=== PATIENT | female | born 1955 | race Caucasian/White ===

== ENCOUNTER 2020-08-16 08:30 | Observation (INO) ==
--- NOTE | 2020-07-27 10:29 | PAT Medication Instructions ---
Medication Instructions Date of Service July 27, 2020 Home Medications hydrochlorothiazide 12.5 mg capsule 12.5 mg PO QAM losartan 50 mg tablet 50 mg PO QAM acetaminophen 1,000 mg PO BID PRN multivitamin 1 tab PO 3XWK DO NOT take the morning of surgery hydrochlorothiazide 12.5 mg capsule 12.5 mg PO QAM losartan 50 mg tablet 50 mg PO QAM multivitamin 1 tab PO 3XWK Take morning of surgery With a small sip of water, OTHERWISE NOTHING TO EAT OR DRINK AFTER MIDNIGHT: acetaminophen 1,000 mg PO BID PRN (okay to take up to 4 hours prior to surgery if needed) Take evening before surgery acetaminophen 1,000 mg PO BID PRN (if needed) Other Notes If you have any questions please call us at [phone] or [phone] or [phone] or [phone]
--- NOTE | 2020-08-02 09:37 | PAT Medication Instructions ---
Medication Instructions Date of Service August 02, 2020 Home Medications Medication Instructions Recorded Wheeled Walker #1 ea 08/01/20 Wheeled Walker #1 ea 08/01/20 hydrochlorothiazide 12.5 mg capsule 12.5 mg PO QAM losartan 50 mg tablet 50 mg PO QAM acetaminophen 1,000 mg PO BID PRN multivitamin 1 tab PO 3XWK DO NOT take the morning of surgery hydrochlorothiazide 12.5 mg capsule 12.5 mg PO QAM losartan 50 mg tablet 50 mg PO QAM multivitamin 1 tab PO 3XWK Take morning of surgery With a small sip of water, OTHERWISE NOTHING TO EAT OR DRINK AFTER MIDNIGHT: acetaminophen 1,000 mg PO BID PRN (okay to take up to 4 hours prior to surgery if needed) Take evening before surgery acetaminophen 1,000 mg PO BID PRN (if needed) Other Notes If you have any questions please call us at [phone] or [phone] or [phone] or [phone]
--- NOTE | 2020-08-06 09:03 | Anesthesiology Consultation ---
Date of Service August 06, 2020 Assessment & Plan (1) Encounter for pre-operative examination: COVID Status: As of 08/06 assessment, patient denies travel to endemic area, known exposure/sick contacts, or symptoms of COVID19. Patient instructed that they and their household members must follow strict social distancing guidelines, wear a mask in public and avoid travel/events/gatherings for 14 days prior to surgery. Preoperative COVID19 testing to be completed prior to surgery per surgeon's arrangements (08/10). Patient made aware to self-isolate as much as possible between COVID testing and surgery. Chart Review Chart Review: Acceptable Risk for Surgery and Patient seen in Pre Admission Testing Teaching & Discussion Instructed NPO after midnight before surgery, except medications with 15 cc of water. Medication instructions provided according to the PAT guidelines. History Surgery Operation Date: 08/16/20 11:10 Proposed Procedures p Right Total Knee Arthroplasty - Lan Camara MD Height/Weight Height: 5 ft 6 in Weight: 98.2 kg Allergies Allergy/AdvReac Type Severity Reaction Status Date / Time lisinopril AdvReac Intermediate COUGH Verified 07/24/20 14:31 Medications Home Medications Medication Instructions Recorded Confirmed Last Taken hydrochlorothiazide 12.5 mg capsule 12.5 mg PO QAM 05/14/20 07/24/20 Unknown losartan 50 mg tablet 50 mg PO QAM 05/14/20 07/24/20 Unknown acetaminophen 1,000 mg PO BID PRN 07/24/20 07/24/20 Unknown multivitamin 1 tab PO 3XWK 07/24/20 07/24/20 Unknown Wheeled Walker #1 ea 08/01/20 Unknown Wheeled Walker #1 ea 08/01/20 Unknown Past Medical History Medical History HTN (hypertension) Hx of cancer of uterus hx. surgical intervention. no chemo/radiation Osteoarthritis Exercise / Class Metabolic Activity III < 4 Walking/Shop/Light housework (Does not do stairs/exertion due to knee pain, no SOB or CP with ambulation on one level) Past Family History Family History Other Heart disease Kidney disease Lung cancer No family history of adverse response to anesthesia Past Surgical History Surgical History History of arthroplasty of left knee History of carpal tunnel release bilateral History of colonoscopy Hx of cholecystectomy S/P laparoscopic hysterectomy BSO Past Anesthesia History No Hx of Anesthesia Complications and No Family Hx of Anesthesia Complications History of PONV No Hx of PONV and No Hx of Motion Sickness Social History Smoking Status: Never smoker Do You Dip or Chew Tobacco: No Hx Alcohol Use: Yes Alcohol type: beer, wine and hard liquor alcohol intake frequency: a few times a week Hx Substance Use: No substance use type: does not use Review of Systems Pt denies any recent chest pain, shortness of breath, palpitations, cough, fever, URI, or uncontrolled acid reflux. Physical Exam Vital Signs BP: 120/76 P: 77bpm SPO2: 97% RA T: 98.5 F R: 16 ENMT Mouth: + dental restorations (crown upper L side); no chipped teeth and no loose teeth Thyromental Distance: > or= 3.5 Finger Breadths Mallampati Class: I Neck + short neck; neck extension not limited Respiratory normal respiratory effort, lungs clear to auscultation Cardiovascular RRR, no murmur, no edema Testing Laboratory Results 08/06/20 09:07 08/06/20 09:07 PT 9.8 Seconds (9.0-12.0) 08/06/20 09:07 INR 1.0 (0.9-1.1) 08/06/20 09:07 APTT 24.8 Seconds (21.0-31.0) 08/06/20 09:07 Blood Type B Positive 08/06/20 09:07 Antibody Screen NEGATIVE 08/06/20 09:07 Electrocardiogram Date: 08/06/20 Findings: + NSR @ (67bpm) Compared to EKG from 05/30/10, QT has lengthened. Chest X-Ray Date: 08/06/20 Findings: + NAD
--- NOTE | 2020-08-06 09:47 | XRay Report ---
XR chest Pre-admission PA/Lat HISTORY: 64 years-old Female pat preoperative exam. No acute chest complaints. Chronic right knee pa in COMPARISON: 05/30/2010 TECHNIQUE: PA and lateral views of the chest FINDINGS: Cardiomediastinal and hilar silhouettes are within normal limits. No pneumothorax, pleural effusion, airspace consolidation or overt pulmonary edema. Surgical clips of the upper abdomen. The bones of th e chest appear grossly intact. IMPRESSION: No acute process. ACT 112: Negative or not required by law. The above report was generated using voice recognition software. It may contain grammatical, syntax o r spelling errors. Electronically signed by: Lonnie Scott M.D. 08/06/2020 9:45 AM
[2020-08-06 10:14] LABS: Basophils # (auto) 0.05 K/uL (0-0.2); Basophils % (auto) 0.8 %; Eosinophils # (auto) 0.11 K/uL (0-0.5); Eosinophils % (auto) 1.8 %; Hematocrit (blood only) 37.4 % (37-47); Hemoglobin 12.9 g/dL (12.0-16.0); Lymphocytes # (auto) 1.76 K/uL (1.2-3.4); Lymphocytes % (auto) 28.6 %; Mean Corpuscular Hemoglobin 31.2 pg (25-34); Mean Corpuscular Hgb Conc 34.5 g/dL (32-36); Mean Corpuscular Volume 90.6 fL (80-100); Mean Platelet Volume 9.6 fL (7.4-10.4); Monocytes # (auto) 0.32 K/uL (0.11-0.59); Monocytes % (auto) 5.2 %; Neutrophils # (auto) 3.92 K/uL (1.4-6.5); Neutrophils % (auto) 63.6 %; Platelet Count 404 K/uL (130-400); Red Blood Count 4.13 M/uL (4.2-5.4); White Blood Count 6.16 K/uL (4.8-10.8)
[2020-08-06 10:29] LABS: Partial Thromboplastin Ratio 0.9; Partial Thromboplastin Time 24.8 Seconds (21.0-31.0); Prothrombin Time 9.8 Seconds (9.0-12.0)
[2020-08-06 12:50] LABS: BUN Creatinine Ratio 25.6 (10-20); C Reactive Protein 1.61 mg/dl (0-0.29); Calcium 9.4 mg/dl (8.5-10.1); Creatinine Clr Calc Pharmacy 77.2 ml/min; Est GFR (African American) 81.6; Est GFR (Non-African American) 70.4; Potassium 3.8 mmol/L (3.5-5.1)
--- NOTE | 2020-08-07 05:43 | Electrocardiogram Report ---
Test Reason : Blood Pressure : / mmHG Vent. Rate : 067 BPM Atrial Rate : 067 BPM P-R Int : 164 ms QRS Dur : 088 ms QT Int : 402 ms P-R-T Axes : 051 -16 045 degrees QTc Int : 424 ms Normal sinus rhythm Normal ECG When compared with ECG of 30-MAY-2010 09:20, QT has lengthened Confirmed by Julián Benites ([id number]) on 08/07/2020 5:43:26 AM Referred By: Lan Camara Confirmed By:Julián Benites
--- NOTE | 2020-08-10 15:08 | History and Physical Report ---
DATE OF ADMISSION: 08/16/2020 CHIEF COMPLAINT: Right knee pain, discomfort and instability. HISTORY OF PRESENT ILLNESS: The patient is a 64-year-old female who presents for surgical treatment of her right knee. She has a history of a left knee replacement done by Dr. Milan about 10 years ago. She has done pretty well from this side. Over the past 5 years, she received a bit of increased pain and discomfort in her right knee. It has gradually gotten worse over time. She has a sense of instability in the knee and concern it is going to give out. She has a limited walking tolerance due to the pain. She takes medicines with minimal relief. She is not interested in any further injection, would just like to have her right knee fixed. She has got pain from her knee going up into her thigh and down into her foot. She has nighttime pain. PAST MEDICAL HISTORY: 1. Mild obesity with a BMI of 35. 2. Osteoarthritis. 3. History of uterine cancer, status post hysterectomy. PAST SURGICAL HISTORY: Include: 1. Cholecystectomy. 2. Left knee replacement done [address] Milan. 3. Hysterectomy. 4. Carpal tunnel surgery. ALLERGIES: LISINOPRIL. CURRENT MEDICATIONS: Include: 1. Losartan 50 mg a day. 2. Hydrochlorothiazide 12.5 mg a day. SOCIAL HISTORY: This is a 64-year-old female. Lives in [place]. She is . Does not smoke, 3-4 drinks per week. FAMILY HISTORY: Noncontributory. REVIEW OF HISTORY: Negative for diabetes, neurologic problem, vascular problems, bleeding disorders. Denies any chest pain or shortness of breath. No history of DVT or PE. No known bleeding problems. PHYSICAL EXAMINATION GENERAL: Shows a pleasant, middle-aged female. Looks to be in pretty good health. HEENT: Benign. NECK: Supple, no lymphadenopathy. LUNGS: Clear to auscultation. HEART: Regular rate and rhythm. ABDOMEN: Soft, nontender, nondistended. EXTREMITIES: Grossly neurovascularly intact except as follows. Examination of the right knee reveals the patient walks independently. She does limp on the right side. Knee goes into valgus with weightbearing. Motion is about 5-10 degrees short of full extension to 120 degrees of flexion. There is no instability. No pain with hip motion. X-RAYS: X-rays of the right knee reviewed. It shows advanced right knee DJD. She has got complete loss of her lateral joint space. She has got [id number] disease. A little bit of medial sided gapping. She has patellofemoral arthritis as well. ASSESSMENT: A 64-year-old female 10 years out from a left uncemented total knee replacement with advanced right knee degenerative joint disease. She has failed conservative measures and would just like to have her right knee fixed. PLAN: We will proceed with right knee replacement. The risks and benefits of this procedure were explained to the patient including but not limited to DVT, PE, , infection, neurological injury, vascular injury, bleeding problem, pain, limited range of motion, stiffness, failure to relieve her symptoms, incomplete relief of symptoms, and nerve palsy. The patient understands and desires to proceed. Informed consent was obtained. As far as discharge plans, she is planning to be discharged home using [facility] home health program.
[~2020-08-16 08:30] MED LIST: ACETAMINOPHEN 500 MG TAB PO SCH; BUPIVACAINE 0.5 % 5 MG/1 ML PF 10ML VIAL ONE; BUPIVACAINE LIPOSOME/PF 266 MG, BUPIVACAINE/EPINEPHRINE 50 ML, SODIUM CHLORIDE 0.9% 30 ... INFIL SCH; FAMOTIDINE 20 MG TAB PO SCH; GABAPENTIN 300 MG CAP PO SCH; LR 500ML BOLUS IV SCH; LR 60ML/HR IV SCH; METOCLOPRAMIDE HCL 10 MG TABLET PO SCH; Scopolamine 1 MG TDSY TD SCH; TRANEXAMIC ACID 1,000 MG **IV Intra-op IV SCH; ceFAZolin 2000MG 2,000 MG/15 ML SYR IV SCH
[2020-08-16] MEDS ORDERED: BUPIVACAINE LIPOSOME 1.3% 266 MG/20 ML VIAL ONE (09:28)
[2020-08-16] MEDS ORDERED: SODIUM CHLORIDE 0.9% PF 50 ML VIAL ONE (09:28)
[2020-08-16] MEDS ORDERED: EPINEPHrine INJ 1 MG/ML AMP ONE (09:29)
[2020-08-16] MEDS ORDERED: BUPIVACAINE 0.25% 30 ML VIAL ONE (09:29)
[2020-08-16] MEDS ORDERED: MIDAZOLAM HCL 1 MG/ML 2ML VIAL ONE (09:30)
[2020-08-16] MEDS ORDERED: fentaNYL citrate 100 MCG/2 ML VIAL ONE (09:30)
[2020-08-16] MEDS ORDERED: ONDANSETRON INJ 2 MG/ML 2 ML VIAL ONE (09:33)
[2020-08-16] MEDS ORDERED: PROPOFOL IV EMULSION 10 MG/ML 20 ML VIAL IV ONE ×2 (09:33→11:52)
[2020-08-16] MEDS ORDERED: ONDANSETRON INJ 2 MG/ML 2 ML VIAL IV PRN ×2 (10:02→14:10)
[2020-08-16] MEDS ORDERED: ePHEDrine sulfate 50 MG/ML AMP IV PRN (10:02)
[2020-08-16] MEDS ORDERED: ATROPINE SULFATE 0.1 MG/ML 10ML SYR IV PRN (10:02)
[2020-08-16] MEDS ORDERED: fentaNYL citrate 100 MCG/2 ML VIAL IV PRN (10:02)
--- NOTE | 2020-08-16 10:24 | History & Physical Bridge Note ---
Date of Service August 16, 2020 History & Physical Bridge Note I have examined the patient, reviewed the History & Physical and in the interval since the performance of the History & Physical I have noted the following changes of clinical significance: no changes noted
[2020-08-16] MEDS: BACITRACIN INJ 50,000 UNIT VIAL ONE ×2 (11:04→11:39)
[2020-08-16] MEDS ORDERED: LIDOCAINE HCL 2% 2 ML VIAL/AMP(20MG/ML) INFIL ONE (11:52)
--- NOTE | 2020-08-16 12:12 | Post Operative Brief Note ---
PG Immediate Post Op with CF Date of Surgery August 16, 2020 Pre & Post Diagnosis Operation Date: 08/16/20 10:40 Pre-Op Diagnosis: Right Knee Degenerative Joint Disease Post-Op Diagnosis: Right Knee Degenerative Joint Disease I identified the patient and participated in the time-out.: Yes Procedure Operation Date: 08/16/20 10:40 Actual Procedures p Right Total Knee Arthroplasty(Right) - Lan Camara MD Surgeon Lan Camara MD Piece Presser ISAAC Cuellar Estimated Blood Loss 50 Findings Consistent with Post-Op Diagnosis Fluids 1400 cc Specimens Specimen Description: Permanent A. Right knee bone and tissue Drains Ashford Catheter Anesthesia Type Spinal MAC Complications none Disposition Accompanied Patient To Recovery: No Disposition: Recovery Room
[2020-08-16] MEDS ORDERED: ePHEDrine sulfate 50 MG/ML SYR ONE (12:23)
--- NOTE | 2020-08-16 13:11 | XRay Report ---
TWO VIEWS RIGHT KNEE CLINICAL HISTORY: Postoperative examination. FINDINGS: AP and crosstable lateral portable views of the right knee are obtained. A right knee arthr oplasty is in near anatomic alignment. There has been undersurface remodeling of the patella. No acut e fracture is seen. There are expected postoperative changes around the knee including skin clips, so ft tissue edema, and subcutaneous gas. IMPRESSION: Expected postoperative changes status post right knee arthroplasty. No acute fracture is seen. ACT 112: Negative or not required by law. Electronically signed by: Dakoath Poon M.D. 08/16/2020 1:10 PM
--- NOTE | 2020-08-16 13:22 | Anesthesiology Progress Note ---
Date of Service August 16, 2020 Anesthesia Post Procedure Vital Signs Vital Signs: Temp Pulse Pulse Resp BP BP Pulse Ox 08/16/20 13:10 71 20 110/56 L 99 08/16/20 13:00 55 L 14 103/61 100 08/16/20 12:50 61 20 114/54 L 97 08/16/20 12:40 54 L 16 105/50 L 100 08/16/20 12:30 57 L 20 112/54 L 100 08/16/20 12:20 56 L 16 108/55 L 100 08/16/20 12:14 96.8 F L 59 L 12 103/53 L 100 08/16/20 08:52 97.9 F 58 L 18 147/77 H 100 Pain Intensity Right Knee: Pain Intensity: 0 Transfer of Care Handoff Completed per policy Notes Mental Status: alert / awake / arousable and participated in evaluation Patient Amnestic to Procedure: Yes Nausea / Vomiting: adequately controlled Pain: adequately controlled Airway Patency, RR, SpO2: stable & adequate BP & HR: stable & adequate Hydration State: stable & adequate Neuraxial Anesthesia: was administered and sensory block is resolving Anesthetic Complications: no major complications apparent and Pt Satisfied with anesthetic care
[2020-08-16] MEDS ORDERED: HYDROmorphone INJ 0.5 MG/0.5 ML SYR IV PRN (14:10)
[2020-08-16] MEDS ORDERED: MULTIVITAMIN TAB PO SCH (14:10)
[2020-08-16] MEDS ORDERED: diphenhydrAMINE Capsule 25 MG CAP PO PRN (14:10)
[2020-08-16] MEDS ORDERED: ALUMINUM/MAGNESIUM SUSP 30 ML UDC PO PRN (14:10)
[2020-08-16] MEDS ORDERED: NALOXONE HCL 0.4 MG/1 ML VIAL/CARP IV PRN (14:10)
[2020-08-16] MEDS ORDERED: bisacodyL 10 MG SUPP PR PRN (14:10)
[2020-08-16] MEDS ORDERED: METOCLOPRAMIDE HCL INJ 5 MG/ML 2 ML VIAL IV PRN (14:10)
[2020-08-16] MEDS ORDERED: MAGNESIUM HYDROXIDE SUSP 30 ML UDC PO PRN (14:10)
[2020-08-16] MEDS: SODIUM CHLORIDE 0.9% 1000ML 1,000 ML IV SCH (14:34)
--- NOTE | 2020-08-16 15:09 | Progress Notes ---
DATE: 08/16/2020 SUBJECTIVE: A 64-year-old female postop from a right knee replacement. She is doing well. Not having any pain yet, though she has not got the sensation back in her legs. No chest pain or shortness of breath. Not feeling dizzy or lightheaded. OBJECTIVE: VITAL SIGNS: Temperature 36.4. Vital signs are stable. GENERAL: Shows a pleasant, middle-aged female. She is sitting up in bed, looks pretty comfortable. LUNGS: Clear to auscultation. HEART: Regular rate and rhythm. ABDOMEN: Soft, nontender, nondistended. EXTREMITIES: Grossly neurovascularly intact except as follows: Examination of the right leg reveals the dressing to be clean, dry and intact. Toes are pink with brisk refill. She does not have any significant sensory or motor function in the leg yet. X-RAYS: X-rays of the right knee from recovery room are reviewed. It shows a right cemented posterior stabilized total knee arthroplasty. Components looked to be in good position. No signs of problems. ASSESSMENT: A 64-year-old female postoperative from right knee replacement, doing pretty well. Leg is well aligned. The spinal is still in effect. PLAN: 1. DVT prophylaxis including thigh-high TEDs, SCDs, and aspirin twice a day. 2. PT/OT. Weight bear as tolerated. Right total knee protocol. 3. Pain control, doing well with current pain regimen. We will obviously have to adjust her meds as the spinal wears off. 4. IV antibiotics x24 hours. 5. Disposition: Plan to discharge to home with some home health once adequately recovered and medically stable.
[2020-08-16] MEDS: ACETAMINOPHEN 500 MG TAB PO SCH (17:09)
[2020-08-16] MEDS: Scopolamine CHECK PATCH PLACEMENT SCH ×2 (17:10→23:20)
--- NOTE | 2020-08-16 17:12 | Operative Report ---
Post Operative Report Pre & Post Diagnosis Operation Date: 08/16/20 10:40 Pre-Op Diagnosis: Right Knee Degenerative Joint Disease Post-Op Diagnosis: Right Knee Degenerative Joint Disease I identified the patient and participated in the time-out.: Yes Procedure Operation Date: 08/16/20 10:40 Actual Procedures p Right Total Knee Arthroplasty(Right) - Lan Camara MD Surgeon Lan Camara MD Connie Cleaner ISAAC Cuellar Estimated Blood Loss 50 Findings Consistent with Post-Op Diagnosis Operative findings revealed advanced right knee DJD. She had extensive grade 4 [id number] disease and eburnation of the lateral and patellofemoral compartments. She had a fixed valgus deformity to her knee. Moderate-sized joint effusion. Fluids 1400 cc Specimens Right knee sent for pathology. Drains None. Complications none Disposition Accompanied Patient To Recovery: No Disposition: Recovery Room Indications Patient is a 64-year-old female has had a long history of bilateral knee problems consistent with arthritis. She underwent a left knee replacement in the past. She developed progressive deformity and pain and discomfort in her right knee. She failed all conservative measures. She elected to a total knee arthroplasty. Description of Procedure Operative implants consisted of: 1. Biomet Vanguard size 62.5 right posterior stabilized femoral component. 2. Biomet size 63 tibial tray. 3. 12 mm posterior stabilized polyethylene insert. 4. 28 x 8 all polypatella. The patient was taken to the operating room, identified, placed on the operating table supine position but all contact areas were properly padded. IV antibiotics tried by anesthesia team. A spinal anesthetic and abductor canal block had been provided in the holding area. A Ashford catheter was placed in sterile fashion. A right thigh turn was then placed. The right lower extr emities and prepped draped in usual sterile fashion. The right leg was elevated exsanguinated with use of an Esmarch interspace at 300 mmHg. An anterior approach to the right knee was then performed through longitudinal incision centered over the patella. Sharp dissection was got through subcutaneous tissue down to the extensor mechanism. A medial parapatellar arthrotomy incision was made. Some subperiosteal dissection was carried out medially. The fat pad was resected from each patella tendon. The lateral patellofemoral ligament was released. Patella was subluxated laterally and the knee was flexed. The osteophytes were taken off the distal femur. The ACL and PCL were then released from the distal femur the tibia subluxated anteriorly. The external tibial alignment jig was then placed in the interface the tibia and adjusted 12 mm medially. Proximal tibial cut was made remove about 3 mm metal from the medial side. The tibia was then sized to a size 63. We did have to downsize a slightly oriented get the proper rotation. Attention drawn the femur. The distal femur turned with a sharp drill bit intramedullary canal was suction. A right 5 degree valgus cutting guide was placed. This femoral cutting block was pinned in place but distal femoral cut was made to take an additional 3 mm of bone off distal femur. The knee was brought out in extension. I did release some the IT band and posterior lateral capsule in order to equalize extension gap. Great care was taken throughout the procedure protect the peroneal nerve at all times. The knee was then flexed. The femur was then sized to a size 62.5. The AP cutting block was pinned parallel to the epicondylar axis which was 4 degrees of external rotation. The anterior cut, anterior chamfer, posterior cut, posterior chamfer cuts were made. Box cutting guide was placed in just slight lateral box cut was made. The knee was flexed. The remnants of the medial and lateral menisci were excised. The osteophytes were taken off the posterior aspect of femur. I did have to release the popliteus in order to equalize the flexion gap. The knee was then trialed. The trial femoral component was placed. The tibial tray was pinned in maximum external rotation and the drill and stem punch were used to create defect in proximal tibia for the tibial tray. I then trialed the knee and the 12 mm insert fit most appropriately. Attention drawn the patella. The patella was cleaned of all soft tissues. Patella thickness measured 19 mm in thickness was cut down to 13. Was sized to a size 28 patella. The lug holes were drilled for the 28 patella. The lateral osteophyte was removed. Patella button was placed. Knee was taken through range of motion and the patella tracked nicely with no thumbs test. Attention drawn to placing permanent components. Nupathe all trial components were removed. Bone plug was placed in the distal femur limit blood loss. Double batch Palacos G cement was mixed. A Biomet Vanguard size 62.5 right posterior stabilized femoral component, a Biomet size 63 tibial tray, a size 12 mm posterior stabilized polyethylene insert, and a 28 x 8 all polypatella were then cemented in place. The knee was brought out in full extension total cement hardened. Final cement check was then performed. Pericapsular tissues were injected with a total of 100 cc of combination of 20 of Exparel, 30 cc normal saline, 50 cc of quarter percent Marcaine with epinephrine. Patient did receive 1 g tranexamic acid. The tech was then let down for final turn time of 51 minutes. Hemostasis assured use electrocautery. Extensor mechanism closed with combination 1 PDS suture #1 Vicryl suture in a [id number] fashion. Extensor mechanism checked and found to be intact the subcutaneous tissue then closed with 2 Dexon suture in a buried interrupted fashion skin was closed skin juan carlos. Leg was then cleaned dried a sterile dressing both Xeroform, 4 x 4's, sterile cast padding, Carlton bandage applied. Patient then transferred to the recovery in stable condition. The patient tolerated procedure well and there were no complications. Maynor Cuellar, my physician assisted living assistant, was present for the entire procedure. His assistance was essential and required for appropriate patient positioning, prepping and draping, surgical exposure, performing the technical details of the operation, placement the implants, closure of the wound, and placement of the sterile bandage. I attest to the content of the Intraoperative Record and any orders documented therein. Any exceptions are noted below.
[2020-08-16] MEDS: KETOROLAC 30 MG/ML VIAL IV SCH ×2 (17:14→23:20)
[2020-08-16] MEDS: ASCORBIC ACID 500 MG TAB PO SCH (17:18)
[2020-08-16] MEDS: FERROUS GLUCONATE 324 MG TAB PO SCH (17:18)
[2020-08-16] MEDS: ceFAZolin 2000MG 2,000 MG/15 ML SYR IV SCH (17:39)
[2020-08-16] MEDS ORDERED: TRANEXAMIC ACID / 0.7% NACL 1,000 MG/100 ML BAG IV SCH (19:00)
[2020-08-16] MEDS: oxyCODONE HCL IR 5 MG TAB (IMMEDIATE RELEASE) PO PRN (19:15)
[2020-08-16] MEDS: DOCUSATE SODIUM 100 MG CAP PO SCH (20:23)
[2020-08-16] MEDS: ASPIRIN 81 MG ECTAB PO SCH (20:23)
[2020-08-16] MEDS: TAPENTADOL HCL ER 50 MG TABCR PO SCH (20:23)
[2020-08-16] MEDS ORDERED: SENNA 8.6 MG TAB PO SCH (21:00)
[2020-08-17] MEDS: ceFAZolin 2000MG 2,000 MG/15 ML SYR IV SCH (02:25)
[2020-08-17] MEDS: SODIUM CHLORIDE 0.9% 1000ML 1,000 ML IV SCH (02:37)
[2020-08-17] MEDS: ACETAMINOPHEN 500 MG TAB PO SCH (05:40)
[2020-08-17] MEDS: KETOROLAC 30 MG/ML VIAL IV SCH (05:40)
[2020-08-17] MEDS ORDERED: dexAMETHasone 4 MG TAB PO SCH (08:00)
[2020-08-17] MEDS: ASPIRIN 81 MG ECTAB PO SCH (08:35)
[2020-08-17] MEDS: ASCORBIC ACID 500 MG TAB PO SCH (08:35)
[2020-08-17] MEDS: DOCUSATE SODIUM 100 MG CAP PO SCH (08:35)
[2020-08-17] MEDS: FERROUS GLUCONATE 324 MG TAB PO SCH (08:35)
[2020-08-17] MEDS: Scopolamine CHECK PATCH PLACEMENT SCH (08:36)
[2020-08-17] MEDS: TAPENTADOL HCL ER 50 MG TABCR PO SCH (08:39)
[2020-08-17] MEDS ORDERED: hydroCHLOROthiazide 25 MG TAB PO SCH (09:00)
[2020-08-17] MEDS ORDERED: LOSARTAN POTASSIUM 50 MG TAB PO SCH (09:00)
[2020-08-17] MEDS ORDERED: MULTIVITAMIN TAB PO SCH (09:00)
--- NOTE | 2020-08-17 09:17 | Progress Notes ---
DATE: 08/17/2020 SUBJECTIVE: A 64-year-old white female postop day 1 from right knee replacement. She is doing well. Pain is controlled. Had a pretty good night. No chest pain or shortness of breath. Not feeling dizzy or lightheaded. OBJECTIVE: VITAL SIGNS: Temperature 36.5. Vital signs stable. GENERAL: Shows a pleasant, middle-aged female. She is sitting up in bed and looks quite comfortable this morning. EXTREMITIES: Examination of the right leg reveals the dressing to be clean, dry and intact. Leg is well aligned. She can dorsiflex and plantarflex her foot appropriately. She is neurologically intact. LABORATORY DATA: Pending. ASSESSMENT: A 64-year-old white female postop day 1 from right knee replacement, doing well. Pain is controlled. She is neurologically intact. PLAN: 1. DVT prophylaxis including thigh-high TEDs, SCDs, and aspirin twice a day. 2. PT/OT. Weight bear as tolerated. Right total knee protocol. 3. Pain control, doing well with current pain regimen. 4. Disposition: Plan to discharge to home with some home health likely later today.
[2020-08-17 09:33] LABS: Hematocrit (blood only) 34.5 % (37-47); Hemoglobin 11.8 g/dL (12.0-16.0); Mean Corpuscular Hemoglobin 31.3 pg (25-34); Mean Corpuscular Hgb Conc 34.2 g/dL (32-36); Mean Corpuscular Volume 91.5 fL (80-100); Mean Platelet Volume 9.1 fL (7.4-10.4); Platelet Count 329 K/uL (130-400); RDW Standard Deviation 43.7 fL (36.4-46.3); Red Blood Count 3.77 M/uL (4.2-5.4); White Blood Count 6.93 K/uL (4.8-10.8)
[2020-08-17 09:53] LABS: BUN Creatinine Ratio 19.4 (10-20); Calcium 9.1 mg/dl (8.5-10.1); Creatinine Clr Calc Pharmacy 64.4 ml/min; Est GFR (African American) 65.8; Est GFR (Non-African American) 56.7; Potassium 3.7 mmol/L (3.5-5.1)
[2020-08-17] MEDS: oxyCODONE HCL IR 5 MG TAB (IMMEDIATE RELEASE) PO PRN (10:45)
== END 2020-08-17 11:36 | disposition home health service (06) ==
LOC: ASU 08:30 → 3E 08:30